=== PATIENT | male | born 1955 | race African-American/Black ===

== ENCOUNTER 2023-12-18 12:04 | Outpatient (CLI) | payer OTHER, SELFPAY ==
--- NOTE | ~2023-12-18 | PE_ITS ---
EXAMINATION: PET skull to mid thigh DATE: 12/18/2023 14:18 INDICATION: Right lung lower lobe lesion. TECHNIQUE: Blood glucose level was 86 mg/dL. 9.344 mCi of 18-fluorodeoxyglucose (18-FDG) was administ ered i.v. Low dose computed tomography (CT) images were acquired from the base of the brain to the pr oximal thighs for attenuation correction and anatomic localization. Automated exposure control was em ployed. Dose-length product (DLP) was 695 mGy-cm. Positron emission tomography (PET) images were acqu ired in the same distribution. COMPARISON: None FINDINGS: Head/neck: There are no pathologically enlarged lymph nodes. Chest: A calcified right lung nodule and calcified right hilar and mediastinal lymph nodes are consis tent with old edematous disease. There is mild emphysema. There is a 2.4 cm nodule with air bronchogr ams in right lower lobe with maximum SUV of 2.5. There is mild atelectasis bilaterally. No pleural ef fusion. The heart size is normal. No pericardial effusion. There is a small sliding hiatal hernia. Th ere is bilateral gynecomastia. Abdomen/pelvis/proximal thighs: The liver, gallbladder, pancreas, adrenal glands, and kidneys are nor mal. Calcifications in the spleen are consistent with old granulomatous disease. There is diverticulo sis of the colon without evidence of diverticulitis. The appendix is normal. There are no pathologica lly enlarged lymph nodes. There is no free intraperitoneal fluid. There is a radiopaque foreign body in proximal left femur. IMPRESSION: 1. 2.4 cm nodule in right lung lower lobe with increased activity, consistent with primary bronchogen ic carcinoma. CT-guided biopsy is recommended. Reviewed, dictated and finalized at location B. IMPRESSION: 1. 2.4 cm nodule in right lung lower lobe with increased activity, consistent w ith primary bronchogenic carcinoma. CT-guided biopsy is recommended.
[2023-12-18 12:41] LABS: Glucose Point of Care 86 mg/dl (65-105)
== END 2023-12-18 12:05 | disposition home or self-care (01) ==
LOC: ANHIMG 12:04
DX: R91.1 Solitary pulmonary nodule (principal); R91.8 Other nonspecific abnormal finding of lung field
CPT/HCPCS: 78815; A9552

== ENCOUNTER 2024-01-03 01:18 | Day surgery (SDC) | payer OTHER, SELFPAY ==
--- NOTE | 2023-12-11 07:35 | P.HP_ITS ---
History of Present Illness History of Present Illness Consent: Risks, benefits, and alternatives have been discussed and questions answered. Patient agrees to proceed with procedure. Chief complaint: Bladder Mass Narrative: Albert Hickman is a 68 year old male recently evaluated for microscopic hematuria. Because he has chronic kidney disease we did a simple CT scan of the abdomen pelvis wo/ contrast which suggests soft tissue in the bladder. After discussion of diagnostic options he is electing for cystoscopy under anesthesia with possible clot evacuation, possible TURBT. He is aware of the risks including, but not limited to, need for additional intervention. I will also plan bilateral retrograde pyelography for further evaluation of his upper tracts. Review of Systems Review of Systems: All systems reviewed & are unremarkable except as noted in HPI and below Exam Const: General: no acute distress Resp: Effort & Inspection: normal respiratory effort GI: Inspection: non-distended GI Palp: No abdominal tenderness and No Guarding due to palpation present (GI) Auscultation: normal bowel sounds Assessment and Plan Assessment and plan (1) Hematuria: Code(s): R31.9 - Hematuria, unspecified Status: Acute Assessment and Plan: * Cystoscopy, possible clot evacuation, possible TURBT, bilateral retrograde pyelography
[2023-12-20 14:55] VITALS: BMI 25.2
--- NOTE | 2023-12-20 15:18 | PC.NURSE ---
Report to the Outpatient Waiting Room, entrance under the green pavilion located off [facility], at time __12:15PM on date ___12/27/23____. Planned Procedure Time: ___2:15PM .? Time changes happen often and if your time is changed the preop area will call you the afternoon before. - You and your visitor will be asked to self-screen and do not enter if you have any COVID symptoms. Please call surgeon if you need to reschedule. - A mask is optional within the hospital at this time. Patients may have clear liquids (water, carbonated beverages, clear teas, apple juice) until 3 hours prior to surgery (11:15AM) with a maximum of 20 ounces. - No food from midnight until time of surgery and no smoking. Take only the following medications with a SIP of water on the morning of surgery: ___ACYCLOVIR, CITALOPRAM & DOLUTEGRAVIR-RILPIVIRINE DO NOT STOP ANY OF YOUR OTHER PRESCRIPTION MEDICATIONS PRIOR TO SURGERY EXCEPT THE FOLLOWING Medications to discontinue per physician HOLD ASPIRIN 7 DAYS PRE-OP PER DR PETERSON Date to take last dose 12/19/23 Please no make-up, nail indonesian, hairspray, perfume, deodorant, or body powder the day of surgery.? No jewelry (including any body piercings) or valuables the day of surgery, leave them at home.? Please take a shower or bath the night before, or the morning of, surgery with an antibacterial soap.? Wear comfortable, loose fitting clothing. - Jewelry must be removed prior to entering the operating room.? Rings and piercings that are not removed may be cut off. - The hospital will not accept responsibility for valuables.? - Please leave all valuables, including medications, at home the day of surgery. If you are going home after surgery, a licensed pizza delivery driver must drive you home.? - NO public transportation without another adult if you receive anesthesia. - We recommend that an adult stay with you for 24 hours following discharge. - We also recommend that you do not drive, make important decision, drink alcoholic beverages, or take any drugs that were not prescribed by your health care provider for at least 24 hours after your discharge time. Follow any additional instructions given to you from your surgeon. Telephone instructions given to ____LAURA BILLINGSLEY REP and asked if any additional questions and then verbalized understanding. Patient advised to call surgeon office or pre surgery nurse liaison [phone] if any additional questions.
--- NOTE | 2023-12-27 06:48 | WPDHPUPDATE1 ---
History and Physical Update Update Date/Time: 12/27/23 06:48 History and Physical has been reviewed, including an updated exam of the patient. There are NO changes in the patient's condition. Risks, benefits, and alternatives have been discussed and questions answered. Patient agrees to proceed with procedure.
--- NOTE | 2023-12-28 15:37 | PC.NURSE ---
RESCHEDULED FROM 12/27/23 TO 01/03/24. MESSAGE LEFT FOR JOSE CRUZ AT [facility] WITH PRE-OP INSTRUCTIONS. Report to the Outpatient Waiting Room, entrance under the [address] [place] pavilion located off [facility], at time __9:00AM on date ___01/03/24____. Planned Procedure Time: ___11:00AM .? Time changes happen often and if your time is changed the preop area will call you the afternoon before. - You and your visitor will be asked to self-screen and do not enter if you have any COVID symptoms. Please call surgeon if you need to reschedule. - A mask is optional within the hospital at this time. Patients may have clear liquids (water, carbonated beverages, clear teas, apple juice) until 3 hours prior to surgery with a maximum of 20 ounces. - No food from midnight until time of surgery and no smoking. Take only the following medications with a SIP of water on the morning of surgery: __ACYCLOVIR, CITALOPRAM, DOLUTEGRAVIR-RILPIVIRINE DO NOT STOP ANY OF YOUR OTHER PRESCRIPTION MEDICATIONS PRIOR TO SURGERY EXCEPT THE FOLLOWING Medications to discontinue per physician HOLD ASPIRIN 7 DAYS PRE-OP PER DR PETERSON Date to take last dose 12/26/23 Please no make-up, nail andorran, hairspray, perfume, deodorant, or body powder the day of surgery.? No jewelry (including any body piercings) or valuables the day of surgery, leave them at home.? Please take a shower or bath the night before, or the morning of, surgery with an antibacterial soap.? Wear comfortable, loose fitting clothing.. - Jewelry must be removed prior to entering the operating room.? Rings and piercings that are not removed may be cut off. - The hospital will not accept responsibility for valuables.? - Please leave all valuables, including medications, at home the day of surgery. If you are going home after surgery, a licensed chuck wagon driver must drive you home.? - NO public transportation without another adult if you receive anesthesia. - We recommend that an adult stay with you for 24 hours following discharge. - We also recommend that you do not drive, make important decision, drink alcoholic beverages, or take any drugs that were not prescribed by your health care provider for at least 24 hours after your discharge time. Follow any additional instructions given to you from your surgeon. TELEPHONE MESSAGE/instructions given to ____ANNA and asked if any additional questions and then verbalized understanding. FAXED INSTRUCTIONS TO JAIL. Patient advised to call surgeon office or pre surgery nurse liaison [phone] if any additional questions.
--- NOTE | ~2024-01-03 | XR_ITS ---
EXAMINATION: XR retrograde pyelogram BI DATE: 01/03/2024 11:49 INDICATION: Bladder mass. TECHNIQUE: 114 intraoperative fluoroscopic views of the abdomen and pelvis were obtained. I was not p resent. Fluoroscopy exposure time was 26 seconds. COMPARISON: PET/CT 12/18/2023 FINDINGS: The bilateral retrograde pyelograms are unremarkable. IMPRESSION: 1. Normal bilateral retrograde pyelograms. Reviewed, dictated and finalized at location A. RUCTIONAL MATERIAL DIRECTOR
--- NOTE | 2024-01-03 05:55 | WPDHPUPDATE1 ---
History and Physical Update Update Date/Time: 01/03/24 05:55 History and Physical has been reviewed, including an updated exam of the patient. There are NO changes in the patient's condition. Risks, benefits, and alternatives have been discussed and questions answered. Patient agrees to proceed with procedure.
[2024-01-03 09:00] VITALS: BP 151/74; PULSE 62; RESP 18; TEMP 36.6; O2SAT 100
[2024-01-03] MEDS: LACTATED RINGERS 1,000 ML 30 ML IV CONT (09:35)
[2024-01-03 09:45] VITALS: BMI 25.0
--- NOTE | 2024-01-03 11:05 | P.PNAN_ITS ---
Anes - Initial Pre Proc Eval Procedure: Operation Date: 01/03/24 11:00 Proposed Procedures p Cystoscopy, Possible Clot Evacuation - Jacques Chairez MD s Possible Trans Urethral Resection Bladder Tumor - Jacques Chairez MD Date/Time: 01/03/24 11:05 Surgeon: Jacques Chairez MD Pre Op Diagnosis: Bladder Mass Patient Data Age: 68 Gender: M Height: 1.66 m Weight: 69.4 kg Last Vital Signs Temp 36.6 C 01/03/24 09:00 Pulse 62 01/03/24 09:00 Resp 18 01/03/24 09:00 BP 151/74 H 01/03/24 09:00 Pulse Ox 100 01/03/24 09:00 O2 Del Method Room Air 01/03/24 09:00 Allergies Allergy/AdvReac Type Severity Reaction Status Date / Time ritonavir [From Norvir] Allergy Unknown Verified 12/28/23 15:36 Home Medications Medication Instructions Recorded Confirmed Type acyclovir 400 mg tablet 400 mg PO BID 12/20/23 12/28/23 History aspirin 81 mg tablet,delayed 81 mg PO DAILY 12/20/23 12/28/23 History release atorvastatin 20 mg tablet 20 mg PO HS 12/20/23 12/28/23 History citalopram 40 mg tablet 40 mg PO DAILY 12/20/23 12/28/23 History dolutegravir 50 mg-rilpivirine 25 1 tablet PO DAILY 12/20/23 12/28/23 History mg tablet famotidine 20 mg tablet 40 mg PO HS 12/20/23 12/28/23 History hydrochlorothiazide 25 mg tablet 25 mg PO DAILY 12/20/23 12/28/23 History triamcinolone acetonide 0.1 % 1 applic topical TID 12/20/23 12/28/23 History topical cream Patient hx anesthesia problems: none Family hx anesthesia problems: none Results Review: All pre-operative results and documents have been reviewed as part of the pre- operative evaluation. [facility] Past Medical History Medical History Calculus of kidney Chronic kidney disease, stage III (moderate) Gastroesophageal reflux disease with apnea without esophagitis HIV (human immunodeficiency virus infection) Hyperlipidemia Hypertension Major depressive disorder, recurrent Social History Social History Smoking status: Former smoker ( quit 2006) Alcohol intake: unknown Substance use: unknown Living arrangements: incarcerated Anes - Eval Final PreProcedure Day of Procedure 01/03/24 11:05 Patient weight: overweight Heart: regular rate and rhythm Lungs: decreased breath sounds Airway: Mallampati scale class 1 Neurological: alert and oriented Last oral intake: >/= 8 hours ASA classification: IV Emergent: no Anesthetic plan: proceed Anesthesia type and monitoring: general LMA Results Review: All pre-operative results and documents have been reviewed as part of the pre- operative evaluation. Informed Consent: The patient's anesthetic plan and its attendant risks and benefits were discussed with the patient/family/POA. Questions were solicited and answers provided to the satisfaction of the patient/family/POA.
[2024-01-03] MEDS: ceFAZolin 2 GM/D5W 50 ML 2 GM/50 ML BAG IVPB (11:23)
[2024-01-03] MEDS: LIDOCAINE HCL 2% GEL UROJET 10 ML PKG MUCOUS MEM (11:42)
[2024-01-03 11:54] VITALS: BP 119/76; PULSE 70; RESP 20; TEMP 36.4; O2SAT 100
--- NOTE | 2024-01-03 11:59 | P.OP_ITS ---
Procedure Note - Detailed Date of Procedure 01/03/24 Pre-op Diagnosis Hematuria, possible bladder mass Post-op Diagnosis Other (1. BPH 2. Urethral stricture 3. Normal bladder) Procedure Performed Cystoscopy, urethral dilatation, bilateral retrograde pyelogram Surgeon Jacques Chairez MD Anesthesia General Findings 1. Moderate latereral lobe BPH 2. Moderately constricting bulbous urethral stricture 3. Normal bladder Description of Procedure Patient is brought to the operative suite was prepped draped in routine sterile fashion while in dorsal lithotomy position after the uneventful induction of a general LMA anesthetic. 2% xylocaine jelly was introduced intraurethrally and allowed to stand for an appropriate period of time. Cystoscopy undertaken with a 19 F rigid cystoscope. He does have a moderately constricting bulbous urethral stricture which I dilated from 18 F to 30 F with Anna sounds. He has moderate lateral lobe hyperplasia with a 2 cm prostatic urethra. There was no significant median lobe of the prostate. Bladder is [id number] trabeculated as result of outlet obstruction. The bladder mucosa, however, is perfectly normal without hyperemia. There was no intravesical foreign body neoplasm. An 8 F bulb-tipped catheter was used to obtain bilateral retrograde pyelograms. These showed no evidence of filling defect obstruction or other identifiable pathology on either side. This point scopes and wires removed. P atient tolerated the procedure well was taken recovery room good condition I will add finasteride to tamsulosin for his moderate BPH. His intermittent hematuria is likely a result of BPH. No specific follow-up is needed but I would continue both tamsulosin and finasteride Drains No Packing No Pathology None sent Complications No immediate complications Condition Stable
[2024-01-03 12:10] VITALS: BP 136/91; PULSE 63; RESP 12; O2SAT 100
[2024-01-03 12:22] VITALS: BP 126/87; PULSE 61; RESP 12; O2SAT 99
[2024-01-03 12:28] VITALS: BP 129/73; PULSE 55; RESP 14
[2024-01-03 12:55] VITALS: BP 143/75; PULSE 59; RESP 14
== END 2024-01-03 13:15 | disposition other institution (70) ==
PROVIDERS: Visit Provider Urology
PROC: 0TCB8ZZ Extirpation of Matter from Bladder, Via Natural or Artificial Opening Endoscopic (ICD-10-PCS; CPT 52001; principal; 2024-01-03 11:00)
DX: N35.912 Unspecified bulbous urethral stricture, male (principal); N40.0 Benign prostatic hyperplasia without lower urinary tract symptoms; I12.9 Hypertensive chronic kidney disease with stage 1 through stage 4 chronic kidney disease, or unspecified chronic kidney disease; N18.30 Chronic kidney disease, stage 3 unspecified; E78.5 Hyperlipidemia, unspecified; K21.9 Gastro-esophageal reflux disease without esophagitis; Z79.82 Long term (current) use of aspirin; Z87.891 Personal history of nicotine dependence; Z21 Asymptomatic human immunodeficiency virus [HIV] infection status
CPT/HCPCS: 52005; 74420; C1758; J0690; J1100; J2405; J2704; J3010; J7120; Q9966

== ENCOUNTER 2024-01-24 06:14 | Outpatient (CLI) | payer OTHER, SELFPAY ==
[2024-01-09 14:06] VITALS: BMI 25.2
--- NOTE | 2024-01-09 14:16 | PC.NURSE ---
Pre Radiology instructions Report to the outpatient [facility] on date _01/21/24____ at time _0900am for procedure Time: __1100am __ YOU MAY BE MONITORED AT HOSPITAL FOR UP TO 4 HOURS AFTER YOUR PROCEDURE. A visitor will be allowed to accompany the patient into the hospital. You and your visitor will be asked to self-screen and do not enter if you have any COVID symptoms. A mask is OPTIONAL within the hospital. Patients are to have no food or drink 6 hours prior to procedure time Driving will be restricted after the procedure, you must have a person to drive you home. Labs will be drawn in preop area and once reviewed, you will be taken to radiology area for procedure. When the procedure is completed, you will be taken to outpatient where you will be monitored for several hours. You may have one visitor in this area. Other than holding anti-coagulants, patient may take other medication(s) as scheduled. Prior to your appointment date patients are instructed to hold anti-coagulants after discussing with ordering provider to stop. If unable to discontinue anti-coagulants please notify radiologist. ? No aspirin or warfarin (Coumadin) for 7 days prior to the procedure. ? No clopidogrel (Plavix), ticagrelor (Brilinta), prasugrel (Effient) or dabigatran (Pradaxa) for 5 days prior to the procedure. ? No rivaroxaban (Xarelto), apixaban (Eliquis), dipyridamole (Aggrenox or Persantine) or cilostazol (Pletal) for 2 days prior to the procedure. Medications to discontinue per physician: Aspirin 7 days prior ___ Date to take last dose: 01/13/24 Please leave all valuables, including medications, at home the day of procedure. The hospital will not accept responsibility for valuables. Wear comfortable, loose fitting clothing.? Follow any additional instructions given to you from ordering provider. Telephone instructions given to __Julia Moreira ( at [facility]) and asked if any additional questions and then verbalized understanding. Patient advised to call scheduling provider office or registration scheduling [phone] if any additional questions.
[2024-01-15 10:51] VITALS: BMI 25.2
--- NOTE | 2024-01-15 10:55 | PC.NURSE ---
Pre Radiology instructions Report to the outpatient [facility] on date __01/24/24___ at time __9:00am____ for procedure Time: __11:00am__ YOU MAY BE MONITORED AT HOSPITAL FOR UP TO 4 HOURS AFTER YOUR PROCEDURE. A visitor will be allowed to accompany the patient into the hospital. You and your visitor will be asked to self-screen and do not enter if you have any COVID symptoms. A mask is OPTIONAL within the hospital. Patients are to have no food or drink 6 hours prior to procedure time Driving will be restricted after the procedure, you must have a person to drive you home. Labs will be drawn in preop area and once reviewed, you will be taken to radiology area for procedure. When the procedure is completed, you will be taken to outpatient where you will be monitored for several hours. You may have one visitor in this area. Other than holding anti-coagulants, patient may take other medication(s) as scheduled. Prior to your appointment date patients are instructed to hold anti-coagulants after discussing with ordering provider to stop. If unable to discontinue anti-coagulants please notify radiologist. ? No aspirin or warfarin (Coumadin) for 7 days prior to the procedure. ? No clopidogrel (Plavix), ticagrelor (Brilinta), prasugrel (Effient) or dabigatran (Pradaxa) for 5 days prior to the procedure. ? No rivaroxaban (Xarelto), apixaban (Eliquis), dipyridamole (Aggrenox or Persantine) or cilostazol (Pletal) for 2 days prior to the procedure. Medications to discontinue per physician: __HOLD ASPIRIN 7 DAYS PRE-OP Date to take last dose: 01/16/24 Please leave all valuables, including medications, at home the day of procedure. The hospital will not accept responsibility for valuables. Wear comfortable, loose fitting clothing.? Follow any additional instructions given to you from ordering provider. Telephone instructions given to ____PRISON STAFF and asked if any additional questions and then verbalized understanding. Patient advised to call scheduling provider office or registration scheduling [phone] if any additional questions.
[2024-01-24] VITALS (8 sets, daily range): BP systolic 110–135; BP diastolic 51–87; PULSE 59–68; RESP 15–16; TEMP 36.4; O2SAT 99–100
--- NOTE | ~2024-01-24 | CT_ITS ---
EXAMINATION: CT biopsy lung w/imaging DATE: 01/24/2024 11:26 INDICATION: Right lung lower lobe nodule. TECHNIQUE: The procedure including the risks, benefits, and alternatives and possibility of chest tub e placement were discussed with the patient. Risks discussed included infection, hemorrhage, approxim ately 1/3 risk of pneumothorax, approximately 1/10 risk of pneumothorax severe enough to warrant ches t tube placement, and rarely . The patient understood the risks and agreed to proceed. The patie nt was placed prone. The skin overlying the right chest was prepped and draped in sterile fashion. Anesthetic was administered with 1% lidocaine subcutaneously. A 19 gauge outer needle was advanced u nder CT guidance to the lesion of interest. A 20 gauge core biopsy needle was then used to obtain 3 c ore biopsy specimens. The needle was removed and the entry site was cleaned and dressed. The mA was a djusted according to patient size. Iterative reconstruction technique was employed. The dose-length p roduct was 164.52 mGy-cm. There were no immediate complications. FINDINGS: CT images demonstrate the outer needle tip adjacent to a 2.4 cm nodule in right lung lower lobe. IMPRESSION: 1. CT-guided core needle biopsy of a 2.4 cm nodule in right lung lower lobe. Reviewed, dictated and finalized at location A. COLLECTOR
--- NOTE | ~2024-01-24 | XR_ITS ---
EXAMINATION: XR chest 1V DATE: 01/24/2024 11:30 INDICATION: Right lung nodule status post percutaneous biopsy. TECHNIQUE: A single frontal view of the chest was obtained. COMPARISON: PET/CT 12/18/2023 FINDINGS: A calcified right lung nodule is consistent with old granulomatous disease. There is a nodu le in right lower lobe. No pleural effusion or pneumothorax. The heart size is normal. IMPRESSION: 1. Nodule in right lung lower lobe suspicious for primary bronchogenic carcinoma. Reviewed, dictated and finalized at location A. ICES ADVISOR IMPRESSION: 1. Nodule in right lung lower lobe suspicious for primary bronchogenic carcinom a.
--- NOTE | ~2024-01-24 | XR_ITS ---
EXAMINATION: XR chest 1V portable DATE: 01/24/2024 12:35 INDICATION: Right lung nodule status post percutaneous biopsy. TECHNIQUE: A single frontal view of the chest was obtained. COMPARISON: Chest single view at 11:26 AM FINDINGS: There is a nodule in right lower lobe. No pleural effusion or pneumothorax. The heart size is normal. IMPRESSION: 1. Nodule in right lung lower lobe suspicious for primary bronchogenic carcinoma. Reviewed, dictated and finalized at location A. PHONE PLAYER IMPRESSION: 1. Nodule in right lung lower lobe suspicious for primary bronchogenic carcinom a.
--- NOTE | ~2024-01-24 | XR_ITS ---
EXAMINATION: XR chest 1V portable DATE: 01/24/2024 14:24 INDICATION: Right lung nodule status post percutaneous biopsy. TECHNIQUE: A single frontal view of the chest was obtained. COMPARISON: Chest single view at 12:32 PM FINDINGS: There is a nodule in right lower lobe. No pleural effusion or pneumothorax. The heart size is normal. IMPRESSION: 1. Nodule in right lung lower lobe suspicious for primary bronchogenic carcinoma. Reviewed, dictated and finalized at location A. ATING ROOM COORDINATOR IMPRESSION: 1. Nodule in right lung lower lobe suspicious for primary bronchogenic carcinom a.
[2024-01-24 10:30] LABS: Basophils Absolute Auto 0.1 K/mm3 (0.0-0.1); Basophils Percent Auto 0.9 % (0.2-1.2); Eosinophils Absolute Auto 0.2 K/mm3 (0-0.3); Eosinophils Percent Auto 3.4 % (0-4.4); Hematocrit 45.8 % (42.0-52.0); Hemoglobin 14.7 g/dL (14.0-18.0); Immature Granulocyte Absolute 0.01 K/mm3 (0.00-0.031); Immature Granulocyte Percent A 0.2 % (0-0.5); Lymphocytes Absolute Auto 2.56 K/mm3 (0.9-3.2); Lymphocytes Percent Auto 44.1 % (18.3-44.2); Mean Corpuscular HGB Conc 32.1 g/dl (32-36); Mean Corpuscular Hemoglobin 29.4 pg (26-34); Mean Corpuscular Volume 91.6 fl (80-100); Mean Platelet Volume 9.4 fl (7.4-10.4); Monocytes Absolute Auto 0.4 K/mm3 (0.1-0.6); Monocytes Percent Auto 7.4 % (2.6-8.5); Neutrophils Absolute Auto 2.6 K/mm3 (1.3-6.7); Platelet Count Result 254 k/mm3 (150-375); White Blood Count 5.8 K/mm3 (4.5-10.0)
[2024-01-24 10:30] LABS: Mean Platelet Volume 9.1 fl (7.4-10.4); Platelet Count Result 258 k/mm3 (150-375)
--- NOTE | 2024-01-24 13:10 | SUR.PHASEII ---
1230 PORTABLE CXR DONE.
--- NOTE | 2024-01-24 13:25 | SUR.PHASEII ---
DR. OCTAVIA FRY'D PATIENT TO HAVE ICE CHIPS.
--- NOTE | 2024-01-24 14:38 | SUR.PHASEII ---
1420 PORTABLE CXR DONE.
--- NOTE | 2024-01-24 15:18 | SUR.PHASEII ---
1437 DR. DUDLEY CALLED TO OKAY DISCHARGE. SECURITY CALLED TO ESCORT PATIENT AND POLICE OFFICERS TO CAR. PATIENT HAD ANKLES SHACKLED THE ENTIRE HOSPITAL STAY.
== END 2024-01-24 14:45 | disposition home or self-care (01) ==
PROVIDERS: Referring Provider Internal Medicine Critical Care Medicine; Visit Provider Radiology Diagnostic Radiology
PROC: BB24ZZZ Computerized Tomography (CT Scan) of Bilateral Lungs (ICD-10-PCS; CPT 32408; principal; 2024-01-24 11:00)
DX: R91.8 Other nonspecific abnormal finding of lung field (principal); R91.1 Solitary pulmonary nodule
CPT/HCPCS: 32408; 36415; 71045; 85025; 85049; 88305; 88342